=== PATIENT | female | born 1980 | race Caucasian/White ===

== ENCOUNTER 2022-07-03 00:31 | Emergency (ER) | payer MEDICAID ==
[~2022-07-03] VITALS: Ht 157.5 cm; Wt 61.4 kg
[2022-07-03] MEDS ORDERED: DOXYCYCLINE 100MG CAPSULE PO STA (03:36)
[2022-07-03] MEDS ORDERED: DOXY-11 PO (03:38)
[2022-07-03] MEDS ORDERED: TETanus/Pertussis (Acell)/Diphther VAC/PF (Tdap-Adult) 0.5ml syringe IMVAC ONE (03:40)
[2022-07-03 04:46] VITALS: BP 126/82
== END 2022-07-03 05:01 | disposition home or self-care (01) ==
LOC: ER 00:31
DX: S80.212A Abrasion, left knee, initial encounter (principal); L02.511 Cutaneous abscess of right hand; L03.113 Cellulitis of right upper limb; F17.200 Nicotine dependence, unspecified, uncomplicated; F12.90 Cannabis use, unspecified, uncomplicated; F15.90 Other stimulant use, unspecified, uncomplicated; Z79.899 Other long term (current) drug therapy; W50.3XXA Accidental bite by another person, initial encounter; Y93.89 Activity, other specified; Y92.89 Other specified places as the place of occurrence of the external cause; Y99.8 Other external cause status
CPT/HCPCS: 10060; 73130; 90471; 90715; 99283